=== PATIENT | female | born 1990 | race Caucasian/White ===

== ENCOUNTER 2017-06-23 08:01 | Emergency (ER) | payer OTHER ==
--- NOTE | 2017-06-23 08:26 | EDM.PDOC ---
ED HPI GENERAL MEDICAL PROBLEM - General Chief Complaint: Lower Extremity Injury/Pain Stated Complaint: R FOOT INJURY Time Seen by Provider: 06/23/17 08:22 - History of Present Illness INITIAL COMMENTS - FREE TEXT/NARRATIVE: 18-year-old female presents emergency room with a right foot injury. Last night the patient was jumping into a pool, feet first, and somehow she managed to hit the top of her foot on the bottom of the pool. From it time she' s had difficulty moving her foot and pain with moving her toes. Patient has had no other injuries associated with this. Past medical history significant for type 2 diabetes she is on insulin. Right Feet Pain Score (Numeric/FACES): 4 - Related Data Allergies Allergy/AdvReac Type Severity Reaction Status Date / Time No Known Allergies Allergy Verified 06/23/17 08:16 Home Meds: Home Meds Empagliflozin [Jardiance] 10 mg PO DAILY 06/23/17 [History] Humalog Insulin Pump. 06/23/17 [History] Review of Systems - Review of Systems Review Of Systems: See Below Constitutional: Reports: No Symptoms Eyes: Reports: No Symptoms Respiratory: Reports: No Symptoms Cardiovascular: Reports: No Symptoms GI/Abdominal: Reports: No Symptoms ED EXAM, GENERAL - Physical Exam Exam: See Below Exam Limited By: No Limitations General Appearance: Alert, No Apparent Distress Respiratory/Chest: No Respiratory Distress, Lungs Clear, Normal Breath Sounds Cardiovascular: Regular Rate, Rhythm, No Edema, No Murmur Extremities: Other (Examination right foot, ankle normal. She has some mild swelling no ecchymosis or deformity on the top of her foot she has discomfort with palpation over the tarsal bones. Motion of the forefoot is indeed uncomfortable as is moving the digits. Neurovascular status the foot is otherwise intact good pulses at the dorsalis pedis and posterior tibialis) Course - Vital Signs Last Recorded V/S: Last Vital Signs Temp 36.1 C 06/23/17 08:17 Pulse 88 06/23/17 08:17 Resp 16 06/23/17 08:17 BP 154/93 H 06/23/17 08:17 Pulse Ox 97 06/23/17 08:17 - Orders/Labs/Meds Orders: Active Orders 24 hr Category Date Time Status Durable Medical Equipment for Discharge [DME for Oth 06/23/17 09:08 Ordered Discharge] [COMM] Stat - Re-Assessments/Exams Free Text/Narrative Re-Assessment/Exam: 06/23/17 10:02 X-ray examinations concerning for a mild abnormalities base of the first metatarsal however this did not look acute her lateral sesamoid is bipartide. No other abnormalities appreciated I did have radiology look at this with this questionable fracture at the base of the first metatarsal their interpretation was no acute changes. Patient was placed in a walking boot and this did help. She'll be discharged with a walking boot as recommended that she follow-up with her regular provider back in [place] this next week ibuprofen as needed for discomfort Departure - Departure Time of Disposition: 10:04 Disposition: Home, Self-Care 01 Clinical Impression: Contusion of foot, right - Discharge Information Referrals: Carlos Persaud MD [Primary Care Provider] - Forms: ED Department Discharge Additional Instructions: Return to the emergency room with any questions problems worsening symptoms. Wear the splint all the time except for bathing. You can take care foot out every few hours while awake and do gentle range of motion exercises move your ankle [id number] and try and move your toes so long as it does not cause discomfort. Continue the ibuprofen as needed take with food. Follow-up with your regular physician this next week for recheck. - My Orders Last 24 Hours: My Active Orders 06/23/17 09:08 Durable Medical Equipment for Discharge [DME for Discharge] [COMM] Stat - Assessment/Plan Last 24 Hours: My Active Orders 06/23/17 09:08 Durable Medical Equipment for Discharge [DME for Discharge] [COMM] Stat
--- NOTE | 2017-06-23 09:36 | CR ---
Right foot: 4 views of the right foot were obtained. Comparison: No prior foot exam. Small cystic lucency is seen within the distal first toe within the tuft. I believe that this is either projectional or is benign and incidental. No fracture, dislocation or other bony abnormality is appreciated. Impression: 1. Finding as noted above felt to be incidental. 2. No acute abnormality is appreciated on right foot exam. Diagnostic code #2
== END 2017-06-23 10:25 | disposition home or self-care (01) ==
LOC: JD.ED 08:01
DX: S90.31XA Contusion of right foot, initial encounter (principal); E11.9 Type 2 diabetes mellitus without complications; Z79.4 Long term (current) use of insulin; Z79.899 Other long term (current) drug therapy; W16.522A Jumping or diving into swimming pool striking bottom causing other injury, initial encounter
CPT/HCPCS: 73630-26-RT; 73630-RT; 99282; 99283